=== PATIENT | female | born 1995 | race Caucasian/White ===

== ENCOUNTER 2018-08-11 21:07 | Inpatient (IN) | payer MEDICAID ==
[~2018-08-11] VITALS: Ht 154.9 cm; Wt 66.7 kg
[~2018-08-11 21:07] MED LIST: METHYLERGONOVINE MALEATE 0.2 MG/ML ONE
[2018-08-11] MEDS ORDERED: DEXT 5%/LR + PITOCIN 20UNITS/L 1,000 ML IV SCH (22:37)
[2018-08-11] MEDS ORDERED: METHYLERGONOVINE MALEATE 0.2 MG/ML IM PRN (22:45)
[2018-08-11] MEDS ORDERED: NALOXONE HCL 0.4 MG/ML 1ML VIAL IM PRN (22:45)
[2018-08-11] MEDS ORDERED: LIDOCAINE HCL 1% 20ML VIAL (Pyxis) INJ INFIL SCH (22:45)
[2018-08-11] MEDS ORDERED: CARBOPROST TROMETHAMINE 250 MCG/ML AMPUL IM PRN (22:45)
[2018-08-11] MEDS ORDERED: BUTORPHANOL TARTRATE 2 MG/ML VIAL IV PRN (22:45)
[2018-08-11] MEDS: LACTATED RINGERS 1,000 ML IV SCH (23:24)
[2018-08-11] MEDS ORDERED: PENICILLIN G POTASSIUM 5 MMU in DEXT 5% WATER 100 ML IV SCH (23:30)
[2018-08-12 00:21] LABS: BASOPHILS % 0.4 % (0.0-2.0); EOSINOPHILS % 0.6 % (0.0-5.0); HEMATOCRIT. 30.9 % (36.0-48.0); HEMOGLOBIN. 10.5 g/dL (12.0-16.0); LYMPHOCYTES % 17.3 % (20.0-50.0); MEAN CORPUSCULAR HEMOGLOBIN 30.3 pg (28.0-32.0); MEAN CORPUSCULAR VOLUME 89.2 fL (81.0-99.0); MEAN PLATELET VOLUME 8.2 fl (7.4-10.4); NEUTROPHILS % 75.7 % (40.0-76.0); PLATELET 279 x1000/uL (130-400); RED BLOOD CELL COUNT 3.47 mill/uL (4.2-5.4)
[2018-08-12 00:21] LABS: CLARITY URINE CLEAR (CLEAR); COLOR URINE YELLOW (YELLOW); KETONES URINE NEGATIVE (NEGATIVE); LEUKOCYTE ESTERASE URINE NEGATIVE (NEGATIVE); NITRITE URINE NEGATIVE (NEGATIVE); OCCULT BLOOD URINE TRACE (NEGATIVE); PROTEIN URINE NEGATIVE (NEGATIVE); UROBILINOGEN URINE 0.2 E.U./dL (0.2-1.0)
[2018-08-12 00:31] LABS: CHLORIDE 109 mEq/L (98-107)
[2018-08-12] MEDS: LACTATED RINGERS 1,000 ML IV SCH ×2 (01:01→05:03)
[2018-08-12 01:19] LABS: *AMPHETAMINES SCREEN URINE NEGATIVE (NEGATIVE); *BARBITURATES SCREEN URINE NEGATIVE (NEGATIVE); *BENZODIAZEPINES SCREEN URINE NEGATIVE (NEGATIVE); *COCAINE SCREEN URINE NEGATIVE (NEGATIVE); METHADONE URINE SCREEN NEGATIVE (NEGATIVE)
[2018-08-12 01:20] LABS: OPIATES URINE SCREEN NEGATIVE (NEGATIVE); PHENCYCLIDINE URINE SCREEN NEGATIVE (NEGATIVE)
[2018-08-12 01:22] LABS: HEPATITIS B SURFACE ANTIGEN NEGATIVE
[2018-08-12 01:24] LABS: CANNABINOID URINE SCREEN PRESUMTIVE POSITIVE (NEGATIVE)
[2018-08-12] MEDS ORDERED: ROPIVACAINE HCL 2MG/ML (0.2%) 200ML BOTTLE IR NR (02:30)
[2018-08-12] MEDS ORDERED: ROPIVACAINE HCL/PF 0.2% (2MG/ML) EPI 200ML EPI NR (02:30)
[2018-08-12] MEDS ORDERED: PENICILLIN G POTASSIUM 2.5 MMU in DEXTROSE 5% WATER 50 ML IV SCH (04:00)
[2018-08-12] MEDS ORDERED: DEXT 5%/LR + PITOCIN 20UNITS/L 1,000 ML IV SCH (07:47)
[2018-08-12] MEDS ORDERED: GLYCERIN/WITCH HAZEL LEAF MEDICATED PAD TOP PRN (08:00)
[2018-08-12] MEDS ORDERED: BENZOCAINE/LANOLIN/ALOE VERA SPRAY TOP PRN (08:00)
[2018-08-12] MEDS ORDERED: RHO(D) IMMUNE GLOBULIN 300 MCG/SYR IM PRN (08:00)
[2018-08-12] MEDS ORDERED: HEMORRHOIDAL SUPP PR PRN (08:00)
[2018-08-12] MEDS ORDERED: BISACODYL 10MG SUPP PR PRN (08:00)
[2018-08-12] MEDS ORDERED: IBUPROFEN 400MG TABLET PO PRN (08:00)
[2018-08-12] MEDS: SIMETHICONE 80MG TABLET CHEW PO SCH ×4 (09:00→22:00)
[2018-08-12] MEDS: MAGNESIUM/ALUMINUM HYDROXIDE/SIMETHICONE 30ML UDC PO SCH ×3 (09:00→22:00)
[2018-08-12] MEDS ORDERED: PRENATAL VIT/FE FUMARATE/FA TABLET PO SCH (09:00)
[2018-08-12 09:20] VITALS: BP 115/66
[2018-08-12 09:50] VITALS: BP 117/55
[2018-08-12 16:36] VITALS: BP 115/52
[2018-08-12 19:20] VITALS: BP 113/63
[2018-08-12] MEDS: ACETAMINOPHEN WITH CODEINE 300/30MG TABLET PO PRN (19:54)
[2018-08-13] VITALS: BP 112/65
[2018-08-13 06:38] LABS: BASOPHILS % 0.2 % (0.0-2.0); EOSINOPHILS % 1.1 % (0.0-5.0); HEMATOCRIT. 27.4 % (36.0-48.0); HEMOGLOBIN. 9.3 g/dL (12.0-16.0); LYMPHOCYTES % 20.2 % (20.0-50.0); NEUTROPHILS % 73.5 % (40.0-76.0); PLATELET 237 x1000/uL (130-400); RED BLOOD CELL COUNT 3.01 mill/uL (4.2-5.4); RED CELL DISTRIBUTION WIDTH 14.7 % (11.6-14.6)
[2018-08-13 07:42] VITALS: BP 121/65
[2018-08-13] MEDS: SIMETHICONE 80MG TABLET CHEW PO SCH ×4 (08:13→21:00)
[2018-08-13] MEDS: FERROUS SULFATE 325MG TABLET PO SCH ×3 (08:13→17:15)
[2018-08-13] MEDS: ACETAMINOPHEN WITH CODEINE 300/30MG TABLET PO PRN ×3 (08:14→22:12)
[2018-08-13] MEDS: MAGNESIUM/ALUMINUM HYDROXIDE/SIMETHICONE 30ML UDC PO SCH ×4 (08:15→21:48)
[2018-08-13 15:40] VITALS: BP 98/50
[2018-08-13 20:00] VITALS: BP 112/67
[2018-08-13 22:00] VITALS: BP 100/62
[2018-08-14 02:00] VITALS: BP 98/64
[2018-08-14 08:00] VITALS: BP 107/40
[2018-08-15 19:06] LABS: CANNABINOID CONFIRMATION URINE Positive (.)
== END 2018-08-14 14:10 | disposition home or self-care (01) | DRG 560 ==
LOC: ER 21:07 → 8 EST LDRP 21:28 → 8EST 08-12 09:12
PROVIDERS: ADMIT Obstetrics & Gynecology; ATTEND Specialist
PROC: 10E0XZZ Delivery of Products of Conception, External Approach (ICD-10-PCS; principal; 2018-08-12)
PROC: 0KQM0ZZ Repair Perineum Muscle, Open Approach (ICD-10-PCS; 2018-08-12)
PROC: 3E0R3BZ Introduction of Anesthetic Agent into Spinal Canal, Percutaneous Approach (ICD-10-PCS; 2018-08-12)
PROC: 00HU33Z Insertion of Infusion Device into Spinal Canal, Percutaneous Approach (ICD-10-PCS; 2018-08-12)
DX: O99.324 Drug use complicating childbirth (principal); D64.9 Anemia, unspecified; F12.10 Cannabis abuse, uncomplicated; O90.81 Anemia of the puerperium; O70.1 Second degree perineal laceration during delivery; Z37.0 Single live birth; Z3A.39 39 weeks gestation of pregnancy
CPT/HCPCS: 36415; 76805; 80305; 80349; 86592; 86703; 86762; 86850; 86900; 87340; 96374; 99281; 99285; G0378; J0595; J2210; J2540; J2590; J2795; J3490; J7060

== ENCOUNTER 2019-08-24 01:50 | Emergency (ER) | payer MEDICAID, MEDICARE ==
[~2019-08-24] VITALS: Ht 152.4 cm; Wt 64.0 kg
[2019-08-24 03:05] LABS: HEMATOCRIT. 34.4 % (36.0-48.0); HEMOGLOBIN. 11.9 g/dL (12.0-16.0); MEAN CORPUSCULAR HEMOGLOBIN 31.2 pg (28.0-32.0); MEAN CORPUSCULAR VOLUME 90.1 fL (81.0-99.0); PLATELET 294 x1000/uL (130-400); RED BLOOD CELL COUNT 3.82 mill/uL (4.2-5.4); RED CELL DISTRIBUTION WIDTH 13.5 % (11.6-14.6)
[2019-08-24 03:12] LABS: CHLORIDE 110 mEq/L (98-107)
[2019-08-24] MEDS ORDERED: MORPHINE SULFATE 2 MG/ML CPJ (NOT FOR IM USE) IV ONE (04:15)
[2019-08-24] MEDS ORDERED: ACETAMINOPHEN 500MG TABLET PO ONE (04:15)
[2019-08-24 04:46] LABS: PLATELET ESTIMATE NORMAL
[2019-08-24] MEDS ORDERED: SODIUM CHLORIDE 0.9% 500 ML IV ONE (05:15)
[2019-08-24 07:19] VITALS: BP 95/46
== END 2019-08-24 08:25 | disposition home or self-care (01) ==
LOC: ER 01:50
DX: O9A.211 Injury, poisoning and certain other consequences of external causes complicating pregnancy, first trimester (principal); S02.2XXA Fracture of nasal bones, initial encounter for closed fracture; S09.90XA Unspecified injury of head, initial encounter; M54.6 Pain in thoracic spine; R51 Headache; Z3A.13 13 weeks gestation of pregnancy; Y04.0XXA Assault by unarmed brawl or fight, initial encounter; Y93.89 Activity, other specified; Y92.89 Other specified places as the place of occurrence of the external cause; Y99.8 Other external cause status
CPT/HCPCS: 36415; 70450; 70486; 76801; 76817; 80053; 83690; 85025; 96374; 99285; J2270; J7040

== ENCOUNTER 2019-10-07 10:31 | Emergency (ER) | payer MEDICAID, MEDICARE ==
[~2019-10-07] VITALS: Ht 152.4 cm; Wt 68.0 kg
[2019-10-07 11:38] LABS: CLARITY URINE CLOUDY (CLEAR); COLOR URINE ORANGE (YELLOW); KETONES URINE 1+ (NEGATIVE); LEUKOCYTE ESTERASE URINE 2+ (NEGATIVE); NITRITE URINE POSITIVE (NEGATIVE); OCCULT BLOOD URINE NEGATIVE (NEGATIVE); PROTEIN URINE 1+ (NEGATIVE); SPECIFIC GRAVITY URINE 1.022 (1.005-1.030)
[2019-10-07 11:42] LABS: HEMATOCRIT. 32.7 % (36.0-48.0); HEMOGLOBIN. 11.5 g/dL (12.0-16.0); MEAN CORPUSCULAR HEMOGLOBIN 33.1 pg (28.0-32.0); MEAN CORPUSCULAR VOLUME 93.9 fL (81.0-99.0); MEAN PLATELET VOLUME 6.7 fl (7.4-10.4); PLATELET 240 x1000/uL (130-400); RED BLOOD CELL COUNT 3.48 mill/uL (4.2-5.4); RED CELL DISTRIBUTION WIDTH 14.3 % (11.6-14.6)
[2019-10-07 12:02] LABS: CHLORIDE 104 mEq/L (98-107)
[2019-10-07 12:22] LABS: *AMPHETAMINES SCREEN URINE NEGATIVE (NEGATIVE); *BARBITURATES SCREEN URINE NEGATIVE (NEGATIVE); *BENZODIAZEPINES SCREEN URINE NEGATIVE (NEGATIVE); *COCAINE SCREEN URINE NEGATIVE (NEGATIVE); METHADONE URINE SCREEN NEGATIVE (NEGATIVE); OPIATES URINE SCREEN NEGATIVE (NEGATIVE)
[2019-10-07 12:23] LABS: CANNABINOID URINE SCREEN NEGATIVE (NEGATIVE); PHENCYCLIDINE URINE SCREEN NEGATIVE (NEGATIVE)
[2019-10-07 12:30] LABS: B-HCG QUANTITATIVE 46993 mIU/mL (<3); PLATELET ESTIMATE NORMAL
[2019-10-07 13:56] VITALS: BP 118/65
== END 2019-10-07 14:00 | disposition home or self-care (01) ==
LOC: ER 10:31
DX: O26.892 Other specified pregnancy related conditions, second trimester (principal); S39.91XA Unspecified injury of abdomen, initial encounter; Z3A.19 19 weeks gestation of pregnancy; Y04.0XXA Assault by unarmed brawl or fight, initial encounter; Y93.89 Activity, other specified; Y92.89 Other specified places as the place of occurrence of the external cause; Y99.8 Other external cause status
CPT/HCPCS: 36415; 70110; 76805; 80053; 80305; 81003; 81025; 84702; 85025; 86850; 86900; 87077; 87186; 99284; 99285

== ENCOUNTER 2020-11-19 05:41 | Emergency (ER) | payer MEDICAID ==
[~2020-11-19] VITALS: Ht 157.5 cm; Wt 73.0 kg
[2020-11-19 06:19] VITALS: BP 134/80
[2020-11-19] MEDS ORDERED: ACETAMINOPHEN 325MG TABLET PO ONE (06:30)
[2020-11-19] MEDS ORDERED: FLUORESCEIN SODIUM 1MG/STRIP BOTHEYE ONE (06:30)
[2020-11-19] MEDS ORDERED: TETRACAINE 0.5% OPHTH DROPS 4ML BOTHEYE ONE (06:30)
[2020-11-19] MEDS ORDERED: ERYT1OIN6 LEFTEYE (07:21)
[2020-11-19] MEDS ORDERED: ACET-2708 MT (07:21)
[2020-11-19] MEDS ORDERED: ERYTHROMYCIN BASE 0.5% OPHTH OINT 3.5GM LEFTEYE ONE (07:30)
== END 2020-11-19 07:26 | disposition home or self-care (01) ==
LOC: ER 06:10
DX: S00.212A Abrasion of left eyelid and periocular area, initial encounter (principal); Y04.0XXA Assault by unarmed brawl or fight, initial encounter; Y93.89 Activity, other specified; Y92.89 Other specified places as the place of occurrence of the external cause; Y99.8 Other external cause status
CPT/HCPCS: 99283